=== PATIENT | female | born 1965 | race Caucasian/White ===

== ENCOUNTER 2017-02-22 22:07 | Emergency (ER) | payer BC ==
[~2017-02-22] VITALS: Ht 170.2 cm; Wt 90.7 kg
[2017-02-22 22:19] VITALS: BP 135/89
--- NOTE | 2017-02-22 23:36 | NUR ---
CALLED X4; NOT IN LOBBY
== END 2017-02-22 23:37 | disposition left against medical advice (07) ==
LOC: ER 22:07
DX: Z53.21 Procedure and treatment not carried out due to patient leaving prior to being seen by health care provider (principal)
CPT/HCPCS: A4606; Z7610